=== PATIENT | male | born 1950 | race Caucasian/White ===

== ENCOUNTER 2020-06-24 08:36 | Outpatient (REF) | payer OTHER, SELFPAY ==
--- NOTE | 2020-06-24 11:44 | MHC.AU.P13 ---
Adult Audiological Evaluation Date of Visit: 06/24/20 Reason for Appointment: Audiological evaluation due to concerns for decreased hearing. Mr. Polo has a known bilateral sensorineural hearing loss. He reports that his hearing seems to be getting worse and he's having more difficulty hearing with and without the hearing aids. He denies any changes to his medical history. [place] [facility] [place] Asymmetric mild dropping to severe SNHL, with the right ear hearing 5-25 dBHL poorer than the left with mixed components noted. Medical History: Medical History: Unremarkable Medical History Hearing Instrument History- Right Ear: Sales Manager: [employer] Model: Karazeo [id number] Serial Number: [id number] Battery Size: 13 Warranty: 01/29/2021 Dispensed By: [facility] Date of Fittin11/07/2017 Hearing Instrument History- Left Ear: Sales Manager: Phonak Model: Karazeo [id number]-Vjjxop Serial Number: [id number] Battery Size: 13 Warranty: 01/29/2021 Dispensed By: [facility] Date of Fittin11/07/2017 Otoscopy: Right Ear: Partially occluded with cerumen Left Ear: Two small, non-occluding exostoses in the canal Tympanometry: Right Ear: Non-compliant Middle Ear System (Type B) Left Ear: Normal Middle Ear System (Type A) Hearing Evaluation: Transducer(s) Used: Insert Earphones, Bone Conduction Method: Conventional Audiometry Stimuli Used: Pure Tones Right Ear: Description of Hearing: Mild sloping to severe sensorineural hearing loss from 250-8000 Hz. Left Ear: Description of Hearing: Mild sloping to severe sensorineural hearing loss from 250-8000 Hz. Speech Recognition Threshold (SRT): Method Used: Monitored Live Voice Stimuli Used: Spondee Words Right Ear: 40 dBHL Left Ear: 35 dBHL Word Discrimination: Method: Recorded Lists Word Lists Used: NU-6 Right Ear: 92% at 80 dBHL Left Ear: 92% at 80 dBHL Comparison: Compared to the most recent evaluation: Thresholds have decreased in the left ear. Compared to most recent evaluation: 20 dBHL drop at 2000 Hz in the left ear. Hearing is more symmetric now than in previous evaluations. Recommendations: Recommendations: Audiological re-evaluation in one year. See Hearing Aid Follow-Up note for more information. Hearing aids reprogrammed with updated test results. Diagnosis: Primary Diagnosis: H90.3 Bilateral Sensorineural Hearing Loss Services Performed: Services Performed: Comprehensive Audiological Evaluation (CPT 93668) Tympanometry (CPT 92806) Signature: Provider: Ramiro Brown, CCC-A
== END 2020-06-24 08:37 | disposition home or self-care (01) ==
LOC: HO.SH 08:36
PROVIDERS: Visit Provider Internal Medicine
DX: H90.3 Sensorineural hearing loss, bilateral (principal)
CPT/HCPCS: 92557; 92567

== ENCOUNTER 2021-07-15 09:41 | Outpatient (REF) | payer OTHER, SELFPAY ==
--- NOTE | 2021-07-15 12:44 | MHC.AU.AHA ---
Adult Audiological Evaluation Date of Visit: 07/15/21 Reason for Appointment: Patient suspects he has had a decrease in his hearing. Long-standing history of progressive hearing loss. Patient has been using a pair of Phonak Audeo S00-[id number] hearing aids that he obtained in 2018. He recently lost the left hearing aid. Previous Hearing Test Results: At this clinic on 06/24/2020- Mild to severe sensorineural hearing loss bilaterally Ear History: Recent Ear Drainage: None Reported Recent Ear Pain: None Reported Recent Ear Infections: None Reported Medical History: Medical History: Unremarkable Medical History Otoscopy: Right Ear: Unremarkable Left Ear: Exostoses noted Hearing Evaluation: Transducer(s) Used: Insert Earphones Method: Conventional Audiometry Stimuli Used: Pure Tones Right Ear: Description of Hearing: Mild to severe sensorineural hearing loss Left Ear: Description of Hearing: Mild to severe sensorineural hearing loss Speech Recognition Threshold (SRT): Method Used: Recorded Lists Stimuli Used: Spondee Words Right Ear: 50 dBHL Left Ear: 40 dBHL Word Discrimination: Method: Recorded Lists Word Lists Used: W-22 Right Ear: 80% at 80 dBHL Left Ear: 84% at 75 dBHL Most Comfortable Level (MCL): Right Ear: 80 dBHL Left Ear: 75 dBHL Comparison: Compared to most recent evaluation: Mild threshold decrease in the mid-frequency range Recommendations: Audiological re-evaluation in one year. Patient has lost his left hearing aid. That model has been discontinued by [employer]. He would like to purchase a new pair of hearing aids. See Hearing Aid Evaluation report for more information. Right hearing aid programming updated with today's results. Patient reported that the hearing aids often sound tinny. Using Automatic Fine Tuning adjusted for speech-Too Tinny. Patient Diagnosis: Primary Diagnosis: H90.3 Bilateral Sensorineural Hearing Loss Signature: Provider: Ramiro Mar, [facility]
== END 2021-07-15 09:42 | disposition home or self-care (01) ==
LOC: HO.SH 09:41
PROVIDERS: Visit Provider Internal Medicine
DX: Z01.118 Encounter for examination of ears and hearing with other abnormal findings (principal); H90.3 Sensorineural hearing loss, bilateral
CPT/HCPCS: 92557

== ENCOUNTER 2021-07-15 10:49 | Outpatient (REF) | payer SELFPAY ==
--- NOTE | 2021-07-15 11:27 | MHC.AU.HAS ---
Hearing Aid Evaluation Date of Visit: 07/15/21 Historical Information: Description of Hearing: Mild to severe sensorineural hearing loss bilaterally Current personal amplification information, if applicable: Pair of Phonak Audeo [id number] Summary: Patient was seen today for audiological re-evaluation (see separate report for details). Patient reports that he recently lost his left hearing aid. Phonak was contacted- his current hearing aids have been discontinued and cannot be purchased. They are out of the loss and damage warranty. Patient would like to purchase a new pair of hearing aids, rather than only replacing the left, so that he does not lose out on the binaural features of a matching set. He would also like to stay with disposable batteries. Hearing Aid Prescription: Based on the individual?s shared listening needs, communication environments, dexterity, desire for connectivity, and personal preferences, the following prescription for amplification has been made: Right ear: Microbiology Instructor: Phonak Model: Audeo P70-13T Battery Size: 13 Color: Black Type of Mold: Silicone slim tip Left ear: Microbiology Instructor: Phonak Model: Audeo P70-13T Battery Size: 13 Color: Black Type of Mold: Silicone slim tip Action Taken/Action Needed: Earmold Impressions Taken Hearing Instrument Fitting to be scheduled when materials arrive Paid $350 depost. Will need itemized receipt for hearing aids at fitting. Primary Diagnosis: H90.3 Bilateral Sensorineural Hearing Loss Signature: Provider: Ramiro Mar, [facility]
--- NOTE | 2021-07-15 11:28 | MHC.AU.MED ---
Medical Clearance for Hearing Instrumentation Date: 07/15/21 Patient Name: Faisal Polo Date of : 1950 Primary Care Provider: Nicolas Chiu MD Referring Provider: Nicolas Chiu MD We have seen your patient on 07/15/21 and have determined that they are a candidate for amplification (See accompanying report). Specifically, they would benefit from: Hearing aid use in both ears There is a statute that addresses Medical Evaluation Requirements prior to fitting a patient with a hearing aid. According to [place] statute 265 CMR:6.03(1), (a) General. Except as provided in 265 CMR 6.03(1)(b), a straw hat presser shall not sell a hearing aid unless the prospective user has presented to the straw hat presser a written statement signed by a licensed physician that states that the patient's hearing loss has been medically evaluated and the patient may be considered a candidate for a hearing aid. The medical evaluation must have taken place within the preceding six months. Please note: Due to the [place] Statute referenced above, we cannot accept a signature other than that of a licensed physician. CLINICAL PROJECT COORDINATOR and PA signatures cannot be accepted. I am in agreement with the above recommendation. There is no medical contraindication for hearing instrumentation. Physician Signature Date Physician Name (Printed)
== END 2021-07-15 10:50 | disposition home or self-care (01) ==
LOC: HO.HAP 10:49
PROVIDERS: PCP Internal Medicine; Visit Provider Internal Medicine
DX: Z46.1 Encounter for fitting and adjustment of hearing aid (principal); H90.3 Sensorineural hearing loss, bilateral
CPT/HCPCS: 92591

== ENCOUNTER 2021-08-16 08:13 | Outpatient (REF) | payer SELFPAY ==
--- NOTE | 2021-08-16 09:36 | MHC.AU.HFA ---
Hearing Instrument Fitting- Adult- Binaural Date of Visit: 08/16/21 Hearing Instruments Dispensed: Right Ear: Fixer Supervisor: Phonak Model: Audeo P70-13T Serial Number: [id number] Repair Warranty: 10/24/2024 Loss and Damage Warranty: 10/24/2024 Service Plan: 10/24/2024 Battery Size: 13 Color: Black Back Tacker: 2M Type of Mold: Silicone slim tip #[id number] Warranty 11/22/2021 Type of Wax Guard: CeruShield Left Ear: Fixer Supervisor: Phonak Model: Audeo P70-13T Serial Number: [id number] Repair Warranty: 10/24/2024 Loss and Damage Warranty: 10/24/2024 Service Plan: 10/24/2024 Battery Size: 13 Color: Black Back Tacker: 2M Type of Mold: Silicone slim tip #[id number] Warranty 11/22/2021 Type of Wax Guard: CeruShield Summary of Fitting: Feedback food and beverage service manager was run. Verifit performed and levels adjusted to better reach targets. Patient initially felt the sound was too loud- lowered target gain until patient felt it was comfortable, at 85% target. Patient reported the sound was comfortable and clear. He feels the molds fit well. Hearing aid care and maintenance were discussed and practiced. Hearing aids were paired to his phone and marco antonio. Recommendations: A hearing instrument follow-up was scheduled. Paid $3850 balance. Diagnosis Code(s): Primary Diagnosis: H90.3 Bilateral Sensorineural Hearing Loss Signature: Provider: Ramiro Mar, [facility]
== END 2021-08-16 08:14 | disposition home or self-care (01) ==
LOC: HO.HAP 08:13
PROVIDERS: Visit Provider Internal Medicine
DX: Z46.1 Encounter for fitting and adjustment of hearing aid (principal); H90.3 Sensorineural hearing loss, bilateral
CPT/HCPCS: V5261

== ENCOUNTER 2021-08-30 08:45 | Outpatient (REF) | payer SELFPAY | END 2021-08-30 08:46 | disposition home or self-care (01) | LOC: HO.HAP 08:45 | PROVIDERS: Visit Provider Internal Medicine | DX: Z13.89 Encounter for screening for other disorder (principal) ==

== ENCOUNTER 2021-12-06 11:17 | Outpatient (REF) | payer SELFPAY | END 2021-12-06 11:18 | disposition home or self-care (01) | LOC: HO.HAP 11:17 | PROVIDERS: Visit Provider Internal Medicine | DX: Z13.89 Encounter for screening for other disorder (principal) ==

== ENCOUNTER 2021-12-07 12:03 | Outpatient (REF) | payer SELFPAY | END 2021-12-07 12:04 | disposition home or self-care (01) | LOC: HO.HAP 12:03 | PROVIDERS: Visit Provider Internal Medicine | DX: Z13.89 Encounter for screening for other disorder (principal) ==

== ENCOUNTER 2022-03-14 11:27 | Outpatient (REF) | payer SELFPAY | END 2022-03-14 11:28 | disposition home or self-care (01) | LOC: HO.HAP 11:27 | PROVIDERS: Visit Provider Internal Medicine | DX: Z13.89 Encounter for screening for other disorder (principal) ==

== ENCOUNTER 2022-04-05 11:03 | Outpatient (REF) | payer SELFPAY | END 2022-04-05 11:04 | disposition home or self-care (01) | LOC: HO.HAP 11:03 | PROVIDERS: Visit Provider Internal Medicine | DX: Z46.1 Encounter for fitting and adjustment of hearing aid (principal); H90.3 Sensorineural hearing loss, bilateral | CPT/HCPCS: V5299 ==

== ENCOUNTER 2022-11-16 14:10 | Outpatient (REF) | payer SELFPAY | END 2022-11-16 14:11 | disposition home or self-care (01) | LOC: HO.HAP 14:10 | PROVIDERS: Visit Provider Internal Medicine | DX: Z13.89 Encounter for screening for other disorder (principal) ==

== ENCOUNTER 2022-12-30 08:32 | Outpatient (REF) | payer SELFPAY | END 2022-12-30 08:33 | disposition home or self-care (01) | LOC: HO.HAP 08:32 | PROVIDERS: Visit Provider Internal Medicine | DX: Z46.1 Encounter for fitting and adjustment of hearing aid (principal); H90.3 Sensorineural hearing loss, bilateral | CPT/HCPCS: V5264 ==

== ENCOUNTER 2023-03-23 11:55 | Outpatient (REF) | payer SELFPAY | END 2023-03-23 11:56 | disposition home or self-care (01) | LOC: HO.HAP 11:55 | PROVIDERS: Visit Provider Internal Medicine | DX: Z13.89 Encounter for screening for other disorder (principal) ==

== ENCOUNTER 2023-03-24 14:27 | Outpatient (REF) | payer SELFPAY | END 2023-03-24 14:28 | disposition home or self-care (01) | LOC: HO.HAP 14:27 | PROVIDERS: Visit Provider Internal Medicine | DX: Z13.89 Encounter for screening for other disorder (principal) ==

== ENCOUNTER 2023-07-11 13:36 | Outpatient (REF) | payer SELFPAY | END 2023-07-11 13:37 | disposition home or self-care (01) | LOC: HO.HAP 13:36 | PROVIDERS: Visit Provider Internal Medicine | DX: Z13.89 Encounter for screening for other disorder (principal) ==

== ENCOUNTER 2023-07-12 15:47 | Outpatient (REF) | payer OTHER, SELFPAY ==
--- NOTE | 2023-07-13 11:30 | MHC.AU.HA3 ---
Hearing Instrument Follow-Up- Binaural Date of Visit: 07/12/23 Right Ear: Angelo, Model, Color, Serial Number: Yasmeen Ball [id number] SN: [id number] Color: Black Imaging Tech Repair Warranty: 10/24/2024 Imaging Tech Loss and Damage Warranty: USED [facility] Service Plan: 10/24/2024 Battery Size: 13 Records Management Engineer/Slim Tube: 2M Earmold/Dome/CShell/SlimTip:Silicone slim tip #[id number] Warranty 03/27/2023 Type of Wax Guard: CeruShield Dispensed By: [facility] Date of Fittin08/16/2021 Left Ear: Angelo, Model, Color, Serial Number: Yasmeen Ball [id number] SN: [id number] Color: Black Imaging Tech Repair Warranty: 10/24/2024 Imaging Tech Loss and Damage Warranty: USED [facility] Service Plan: 10/24/2024 Battery Size: 13 Records Management Engineer/Slim Tube: 2M Earmold/Dome/CShell/SlimTip: Silicone slim tip #[id number] Warranty 03/27/2023 Type of Wax Guard: CeruShield Dispensed By: [facility] Date of Fittin08/16/2021 Follow-Up Summary: Faisal reports he has been turning the volume of his hearing aids up lately, particularly in the right ear. Audiologic testing showed stable hearing. His aids were dropped off this morning and left cleaning machine operator was changed, also replaced right at appointment due to wax deep in cleaning machine operator. He reported slight improvement. Increased gain of both aids, increased right one extra step, he reported they sounded balanced. Return as needed or if today's adjustments are not satisfactory. Recommendations: Recommendations: Hearing instrument follow-up or maintenance as needed. Diagnosis Code(s): Primary Diagnosis: H90.3 Bilateral Sensorineural Hearing Loss Signature: Provider: Ramiro Felton, [facility]
== END 2023-07-12 15:48 | disposition home or self-care (01) ==
LOC: HO.SH 15:47
PROVIDERS: Visit Provider Internal Medicine
DX: Z01.118 Encounter for examination of ears and hearing with other abnormal findings (principal); H90.3 Sensorineural hearing loss, bilateral
CPT/HCPCS: 92552; 92556

== ENCOUNTER 2023-07-12 15:50 | Outpatient (REF) | payer SELFPAY | END 2023-07-12 15:51 | disposition home or self-care (01) | LOC: HO.HAP 15:50 | PROVIDERS: Visit Provider Internal Medicine | DX: Z13.89 Encounter for screening for other disorder (principal) ==

== ENCOUNTER 2024-04-19 08:26 | Outpatient (REF) | payer OTHER, SELFPAY | END 2024-04-19 08:27 | disposition home or self-care (01) | LOC: HO.SH 08:26 | PROVIDERS: Visit Provider Internal Medicine | DX: Z01.118 Encounter for examination of ears and hearing with other abnormal findings (principal); H90.3 Sensorineural hearing loss, bilateral | CPT/HCPCS: 92552; 92556 ==

== ENCOUNTER 2024-04-19 09:24 | Outpatient (REF) | payer SELFPAY ==
--- NOTE | 2024-04-19 10:14 | MHC.AU.MED ---
Medical Clearance for Hearing Instrumentation Date: 04/19/24 Patient Name: Faisal Polo Date of : 1950 Primary Care Provider: Referring Provider: Nicolas Chiu MD We have seen your patient on 04/19/24 and have determined that they are a candidate for amplification (See accompanying report). Specifically, they would benefit from: Hearing aid use in both ears There is a statute that addresses Medical Evaluation Requirements prior to fitting a patient with a hearing aid. According to [place] statute 265 CMR:6.03(1), (a) General. Except as provided in 265 CMR 6.03(1)(b), a hearing aid assistant shall not sell a hearing aid unless the prospective user has presented to the hearing aid assistant a written statement signed by a licensed physician that states that the patient's hearing loss has been medically evaluated and the patient may be considered a candidate for a hearing aid. The medical evaluation must have taken place within the preceding six months. Please note: Due to the [place] Statute referenced above, we cannot accept a signature other than that of a licensed physician. POWER SYSTEMS ENGINEER and PA signatures cannot be accepted. I am in agreement with the above recommendation. There is no medical contraindication for hearing instrumentation. Physician Signature Date Physician Name (Printed)
--- NOTE | 2024-04-19 10:36 | MHC.AU.HA1 ---
Hearing Aid Evaluation Date of Visit: 04/19/24 Record Center Coordinator Used: Historical Information: Description of Hearing: Mild to severe sensorineural hearing loss Current personal amplification information, if applicable: Phonak Audeo P 13T Summary: Faisal recently lost his right hearing aid, has already used his L&D coverage on these devices and is ready to purchase new aids. He states his was told he has a $2000/ear benefit through [employer] for [facility], online plan documents state this benefit is available for 21 years and under after prior approval. He believes he has received the benefit previously, and we have recently seen this benefit be approved for someone over age 21 (refund status for this patient remains unknown at this time), but advised patient to call his insurance and specifically ask about age requirements. He states he needs to get the hearing aids either way so would like to move forward. Will submit prior approval request while aids are being produced. 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 Will order earmolds off scans on file to expedite process. Will request medical clearance and submit prior approval request. Hearing Aid Prescription: Based on the individual?s shared listening needs, communication environments, dexterity, desire for connectivity, and personal preferences, the following prescription for amplification has been made: Right ear: Make, Model, Color: Phonak Audeo L70-312 Color: Black Battery Size: 13 Administrative Services Director/Slim Tube: 2M Type of Earmold/Dome/CShell/SlimTip: Silicone slim tip with canal lock Left ear: Left ear prescription to be same as Right Hearing Aid above: Make, Model, Color: Phonak Audeo P70-312 Color: Black Battery Size: 13 Administrative Services Director/Slim Tube: 2M Type of Earmold/Dome/CShell/SlimTip: Silicone slim tip with canal lock Plan of Care: Patient wishes to purchase hearing aids as prescribed Action Taken/Action Needed: Prior authorization to be requested Medical Clearance to be requested from PCP/ENT Hearing Instrument Fitting to be scheduled when materials arrive Comments: Primary Diagnosis: H90.3 Bilateral Sensorineural Hearing Loss Signature: Provider: Ramiro Felton, [facility]
== END 2024-04-19 09:25 | disposition home or self-care (01) ==
LOC: HO.HAP 09:24
PROVIDERS: Visit Provider Internal Medicine
DX: Z46.1 Encounter for fitting and adjustment of hearing aid (principal); H90.3 Sensorineural hearing loss, bilateral
CPT/HCPCS: 92590

== ENCOUNTER 2024-05-07 15:18 | Outpatient (REF) | payer SELFPAY | END 2024-05-07 15:19 | disposition home or self-care (01) | LOC: HO.HAP 15:18 | PROVIDERS: Visit Provider Internal Medicine | DX: Z46.1 Encounter for fitting and adjustment of hearing aid (principal); H90.3 Sensorineural hearing loss, bilateral | CPT/HCPCS: 92700; V5261; V5264 ==

== ENCOUNTER 2024-05-27 14:00 | Outpatient (REF) | payer SELFPAY ==
--- OUTSIDE RECORDS SUMMARY | 2024-05-29 16:01 | XMS_ITS | Continuity of Care Document ---
Author Organization [facility] Address [address] [address]- Care Team Providers Care Associate Store Leader Name Role Phone Nicolas Chiu MD Primary Care Physician [place] [facility] [place]): [place]27[place]24 - 05/27/24 [facility] [address], [place] [address] Encounter Type: Triage Allergies, Adverse Reactions, Alerts Substance Criticality Severity Reaction Reaction Severity Status tamsulosin Weakness Diarrhea Stomach cramps Active sulfa drugs Itchy Active Sudafed Feeling jittery Itch Active Immunizations Given and Recorded Vaccine Date Status Refusal Reason influenza virus vaccine, inactivated 1 05/01/24 Re corded influenza virus vaccine, inactivated 04/08/23 Kristian rded influenza virus vaccine, inactivated 03/15/22 Kristian rded influenza virus vaccine, inactivated 03/10/20 Kristian rded influenza virus vaccine, inactivated 03/24/19 Kristian rded influenza virus vaccine, inactivated 05/01/18 Kristian rded influenza virus vaccine, inactivated 2 04/11/17 Gi trinh influenza virus vaccine, inactivated 3 03/21/16 Gi trinh influenza virus vaccine, inactivated 4 04/02/15 Gi trinh influenza virus vaccine, inactivated 5 03/19/14 Gi trinh influenza virus vaccine, inactivated 6 04/19/12 Gi trinh influenza virus vaccine, inactivated 7 04/19/11 Gi trinh pneumococcal 20-valent conjugate vaccine 8 10/20/23 Given SARS-CoV-2(COVID-19)mRNA-LNP vac(foi920) 04/29/23 Recorded VCEF-NdO-2sQCE 12y+ bivalent booster vax 05/03/22 Recorded SARS-CoV-2 (COVID-19) mRNA BNT-162b2 vac 9 02/18/21 Recorded SARS-CoV-2 (COVID-19) mRNA BNT-162b2 vac 07/07/20 Recorded SARS-CoV-2 (COVID-19) mRNA BNT-162b2 vac 06/16/20 Recorded Influenza Virus Vaccine (oldterm) 02/18/21 Recorde d Influenza Virus Vaccine (oldterm) 10 04/19/07 Give n zoster vaccine, inactivated 11/24/18 Recorded zoster vaccine, inactivated 09/01/18 Recorded pneumococcal 23-valent vaccine 05/01/18 Recorded pneumococcal 13-valent vaccine 05/01/18 Recorded pneumococcal 13-valent vaccine 11 06/06/17 Given tetanus/diphtheria/pertussis, acel(Tdap) 12 07/05/16 Given tetanus/diphtheria/pertussis, acel(Tdap) 13 09/19/14 Given Zoster Vaccine Live 14 06/06/15 Given tetanus-diphtheria toxoids (Td) 15 04/17/03 Given 1Result Comment: [facility] 2Admin Note: done @ [facility] high dose form received 3Admin Note: done @ [facility] 4Result Comment: [04/02/2015] given w/out incident 5Admin Note: done @ [facility] 6Admin Note: done @ work 7Admin Note: [facility] 8Result Comment: [id number] given w/out incident 9Result Comment: booster 10Admin Note: @ work 11Result Comment: [06/06/2017] given w/out incident [facility]: [id number] 12Result Comment: [07/05/2016] given w/out incident 13Result Comment: [09/19/2014] given w/out incident 14Admin Note: done @ [facility] 15Admin Note: [facility] Medications amLODIPine 10 mg oral tablet 1 tablet, By Mouth, Daily, # 90 tablet, 1 Refills, Maintenance, 04/27/24 7:16:00 PM EST, [facility], 175, cm, 02/23/24 8:51:00 EDT, Height Start Date: 04/27/24 Status: Ordered Quantity: 90.0 Unit: tablet Repeat number: 1 aspirin 81 mg oral tablet 1 tablet = 81 mg, By Mouth, Daily, 0 Refills, Maintenance, 09/19/14 2:08:36 PM EDT Start Date: 09/19/14 Stop Date: 10/19/14 Status: Ordered Repeat number: 1 atorvastatin 10 mg oral tablet 1 tablet, By Mouth, Daily, # 90 tablet, 3 Refills, Maintenance, 05/14/24 5:21:00 PM EST, [facility], 175, cm, 02/23/24 8:51:00 EDT, Height Start Date: 05/14/24 Status: Ordered Quantity: 90.0 Unit: tablet Repeat number: 1 finasteride 5 mg oral tablet 1 tablet = 5 mg, By Mouth, Daily, # 30 tablet, 4 Refills, Maintenance, 02/23/24 8:51:00 AM EDT, Tablet, [id number], Partial fill upon patient request if the prescription is for a schedule II opioid drug., 175, cm, 02/23/24 8:51:00 EDT, Height Start Date: 02/23/24 Stop Date: 07/22/24 Status: Ordered Quantity: 30.0 Unit: tablet Repeat number: 5 FLUoxetine 20 mg oral capsule 1, capsule, By Mouth, Daily, # 90 capsule, Refills 3, Maintenance, 04/29/24 7:51:00 AM EST, Route to Pharmacy Electronically, [facility], 175, cm, 02/23/24 8:51:00 EDT, Height Start Date: 04/29/24 Status: Ordered Quantity: 90.0 Unit: capsule Repeat number: 1 metFORMIN 500 mg oral tablet 1 tablet, By Mouth, 2 times a day, # 180 tablet, 3 Refills, Maintenance, 10/23/23 5:51:00 PM EDT, [id number], increase in dose, 175, cm, 10/20/23 8:54:00 EDT, Height Start Date: 10/23/23 Stop Date: 10/17/24 Status: Ordered Quantity: 180.0 Unit: tablet Repeat number: 4 omeprazole 20 mg oral enteric coated capsule 1 capsule, By Mouth, Daily, # 90 capsule, 3 Refills, Maintenance, 02/05/24 7:47:00 AM EDT, [facility], 175, cm, 10/20/23 8:54:00 EDT, Height Start Date: 02/05/24 Status: Ordered Quantity: 90.0 Unit: capsule Repeat number: 1 terazosin 1 mg oral capsule 1 mg, 1, capsule, By Mouth, Daily at bedtime, # 30 capsule, Refills 4, Tot. Refills 4, Maintenance,02/23/24 8:52:00 AM EDT, Route to Pharmacy Electronically, [id number], Partial fillupon patient request if the prescription is for a schedule II opioid drug., 175, cm, 02/23/24 8:51:00 EDT, Height Start Date: 02/23/24 Stop Date: 07/22/24 Status: Ordered Quantity: 30.0 Unit: capsule Repeat number: 5 traZODone 50 mg oral tablet 1, tablet, By Mouth, Daily at bedtime, # 90 tablet, Refills 3, Maintenance, 05/14/24 5:21:00 PM EST, Route to Pharmacy Electronically, [facility], 175, cm, 02/23/24 8:51:00 EDT, Height Start Date: 05/14/24 Status: Ordered Quantity: 90.0 Unit: tablet Repeat number: 1 Viagra 100 mg oral tablet 1 tablet = 100 mg, By Mouth, Daily, PRN as needed for erectile dysfunction, # 20 tablet, 3 Refills,Maintenance, 09/19/22 1:58:00 PM EDT, [id number], 175, cm, 08/09/22 8:54:00 EST, Height, 101.2, kg, 12/02/20 13:40:00 EDT, Dry Weight Start Date: 09/19/22 Stop Date: 09/14/23 Status: Ordered Quantity: 20.0 Unit: tablet Repeat number: 4 Problem List Condition Confirmation Course Effective Dates Status H ealth Status Informant Allergic rhinitis Confirmed Active Anxiety Confirmed Active Appendectomy Confirmed 08/2004 Active Arthroscopy of right knee joint with ACL reconstruction Confirmed 1993 Active BPH with urinary obstruction Confirmed Active Chronic low back pain Confirmed 06/06/17 Active Dyslipidemia Confirmed Active Erectile dysfunction Confirmed Active Eustachian tube dysfunction Confirmed Active Family history of pulmonary emphysema (brother) Confirmed Active FH: Cardiovascular disease (mom) Confirmed Active FH: Hypertension (mom) Confirmed Active Hemorrhoids Confirmed Active S/P left inguinal hernia repair Confirmed 12/02/20 Active Hypertension Confirmed Active Insomnia Confirmed Active Obese class I Confirmed Active Osteoarthritis of carpometacarpal joints of both thumbs Confirmed 06/06/17 Active Skin tags, Axillary Confirmed Active Diabetes mellitus type 2, controlled, without complications Confirmed 10/05/20 Active Social History Social History Type Response Smoking Status Never smoker entered on: 08/27/13 Sex Sex Representation Male (finding) Implantable Device List Procedure Provider Procedure Date Device Type Site Robotic XI Repair Hernia Inguinal Laparo Betito Durán MD 12/02/20 Unknown Groin Left Device Identifier Serial Number Lot or Batch Number Manufacturing Date Expiration Date Distinct Identification Code MRI Safety Implantable Status Assigning Authority Unknown Unknown Unknown Unknown 10/14/21 Unknown Unknown Active Unk zenyn Patient Care team information Care Team Personnel Name: Nicolas Chiu MD Position: [facility] Physician - Primary Care Member Role: PCP Address: [address] [place] [address] [facility] [address] Telecom: Care Team Related Persons Name: LA MACHADO Insurance Providers Guarantor name: AMELIE MEDINALUIGI Health Plan Information #: 1 Payer: [employer] Member Number: NA Policy Number: NA Group Number: NA
== END 2024-05-27 14:01 | disposition home or self-care (01) ==
LOC: HO.HAP 14:00
PROVIDERS: Visit Provider Internal Medicine
DX: Z13.89 Encounter for screening for other disorder (principal)

== ENCOUNTER 2024-11-22 11:14 | Outpatient (REF) | payer SELFPAY | END 2024-11-22 11:15 | disposition home or self-care (01) | LOC: HO.SH 11:14 | PROVIDERS: Visit Provider Internal Medicine | DX: Z01.118 Encounter for examination of ears and hearing with other abnormal findings (principal); H90.3 Sensorineural hearing loss, bilateral | CPT/HCPCS: 92593 ==

== ENCOUNTER 2025-03-18 10:40 | Outpatient (REF) | payer SELFPAY | END 2025-03-18 10:41 | disposition home or self-care (01) | LOC: HO.HAP 10:40 | PROVIDERS: Visit Provider Internal Medicine | DX: Z13.89 Encounter for screening for other disorder (principal) ==

== ENCOUNTER 2025-03-20 14:07 | Outpatient (REF) | payer SELFPAY | END 2025-03-20 14:08 | disposition home or self-care (01) | LOC: HO.HAP 14:07 | PROVIDERS: Visit Provider Internal Medicine | DX: Z46.1 Encounter for fitting and adjustment of hearing aid (principal); H90.3 Sensorineural hearing loss, bilateral | CPT/HCPCS: 92593 ==